=== PATIENT | male | born 1955 | race Caucasian/White ===

== ENCOUNTER → 2023-09-26 13:06 | Outpatient (BNVA) | payer MEDICARE, OTHER, SELFPAY | PROVIDERS: PCP Nurse Practitioner Family; Visit Provider Podiatrist Foot & Ankle Surgery | DX: S92.912A Unspecified fracture of left toe(s), initial encounter for closed fracture; S92.515A Nondisplaced fracture of proximal phalanx of left lesser toe(s), initial encounter for closed fracture; W22.8XXA Striking against or struck by other objects, initial encounter | CPT/HCPCS: 73630; 99203 ==